=== PATIENT | female | born 1950 | race Caucasian/White ===

== ENCOUNTER → 2016-05-28 | Outpatient (CLI) | payer MEDICARE ==
[~2016-05-28] MED LIST: AMIT100 PO; ASPI1TAB7 PO; ISOS60 PO; LORA-475 PO; LOSA25TA31 PO; MULTTAB4 PO; PERP4 PO; SIMV10 PO; VERA120T3 PO; ZOFR4TAB3 PO
[2016-05-28 16:12] LABS: AUTOMATED NEUTROPHIL # 6.3 TH/MM3 (1.8-7.7); BASOPHIL % 0.5 % (0.0-2.0); EOSINOPHIL # 0.1 TH/MM3 (0-0.4); EOSINOPHIL % 1.6 % (0.0-4.0); HEMATOCRIT 40.2 % (35.0-46.0); HEMO FLAGS DIFF FINAL; LYMPH % 22.8 % (9.0-44.0); LYMPHOCYTE # 2.1 TH/MM3 (1.0-4.8); MEAN CELL VOLUME 84.9 FL (80.0-100.0); MEAN CORPUSCULAR HEMOGLOBIN 28.1 PG (27.0-34.0); MEAN CORPUSCULAR HGB CONC 33.1 % (32.0-36.0); MONO % 6.1 % (0.0-8.0); PLATELET COUNT 243 TH/MM3 (150-450); RED BLOOD COUNT 4.74 MIL/MM3 (4.00-5.30); RED CELL DISTRIBUTION WIDTH 13.8 % (11.6-17.2); WHITE BLOOD COUNT 9.2 TH/MM3 (4.0-11.0)
[2016-05-28 16:32] LABS: ALT (GPT) 24 U/L (10-53); ANION GAP 7 MEQ/L (5-15); AST (GOT) 19 U/L (15-37); BICARBONATE 26.8 MEQ/L (21.0-32.0); BLOOD UREA NITROGEN 10 MG/DL (7-18); CHLORIDE 107 MEQ/L (98-107); GLOMERULAR FILTRATION RATE 75 ML/MIN (>89); POTASSIUM 3.9 MEQ/L (3.5-5.1); SODIUM (NA) 141 MEQ/L (136-145)
[2016-05-28 16:33] LABS: ALKALINE PHOSPHATASE 104 U/L (45-117); TOTAL BILIRUBIN ADULT 0.6 MG/DL (0.2-1.0)
[2016-05-28 16:58] LABS: WESTERGREN SEDIMENTATION RATE 24 mm/hr (0-30)
== END ==
LOC: PLAB 14:44
PROVIDERS: ATTEND Family Medicine
DX: R53.1 Weakness (principal); N39.0 Urinary tract infection, site not specified; R10.9 Unspecified abdominal pain; R42 Dizziness and giddiness; I20.9 Angina pectoris, unspecified; M25.50 Pain in unspecified joint
CPT/HCPCS: 36415; 80053; 85025; 85652; 86141

== ENCOUNTER → 2017-07-15 | Outpatient (CLI) | payer MEDICARE ==
[2017-07-15 13:34] LABS: AUTOMATED NEUTROPHIL # 3.5 TH/MM3 (1.8-7.7); BASOPHIL % 0.5 % (0.0-2.0); EOSINOPHIL % 0.2 % (0.0-4.0); HEMATOCRIT 41.3 % (35.0-46.0); HEMOGLOBIN 13.7 GM/DL (11.6-15.3); LYMPH % 32.1 % (9.0-44.0); LYMPHOCYTE # 1.8 TH/MM3 (1.0-4.8); MEAN CELL VOLUME 87.2 FL (80.0-100.0); MEAN CORPUSCULAR HEMOGLOBIN 28.9 PG (27.0-34.0); MEAN CORPUSCULAR HGB CONC 33.2 % (32.0-36.0); MEAN PLATELET VOLUME 8.9 FL (7.0-11.0); MONO % 6.2 % (0.0-8.0); MONOCYTE # 0.4 TH/MM3 (0-0.9); PLATELET COUNT 232 TH/MM3 (150-450); RED BLOOD COUNT 4.73 MIL/MM3 (4.00-5.30); WHITE BLOOD COUNT 5.8 TH/MM3 (4.0-11.0)
[2017-07-15 14:04] LABS: ALBUMIN 3.6 GM/DL (3.4-5.0); AST (GOT) 24 U/L (15-37); BICARBONATE 29.2 MEQ/L (21.0-32.0); BLOOD UREA NITROGEN 13 MG/DL (7-18); CALCIUM 8.7 MG/DL (8.5-10.1); CHLORIDE 106 MEQ/L (98-107); CHOLESTEROL 156 MG/DL (120-200); CREATININE 0.76 MG/DL (0.50-1.00); GLOMERULAR FILTRATION RATE 75 ML/MIN (>89); GLUCOSE,FASTING 86 MG/DL (74-99); SODIUM (NA) 143 MEQ/L (136-145); TRIGLYCERIDES 95 MG/DL (42-150)
[2017-07-15 14:15] LABS: ALKALINE PHOSPHATASE 107 U/L (45-117); ALT (GPT) 26 U/L (10-53); CHOLESTEROL/ HDL RATIO 3.19 RATIO; HDL CHOLESTEROL 48.9 MG/DL (40.0-60.0); LDL CHOLESTEROL 88 MG/DL (0-99); TOTAL BILIRUBIN ADULT 0.7 MG/DL (0.2-1.0); TOTAL PROTEIN 7.7 GM/DL (6.4-8.2)
== END ==
LOC: PLAB 09:43
PROVIDERS: ATTEND Internal Medicine Gastroenterology
DX: K76.0 Fatty (change of) liver, not elsewhere classified (principal); E78.2 Mixed hyperlipidemia; R25.2 Cramp and spasm
CPT/HCPCS: 36415; 80053; 80061; 82248; 84443; 85025

== ENCOUNTER 2017-08-13 01:35 | Emergency (ER) | payer MEDICARE ==
[2017-08-13 01:40] VITALS: BP 153/70; PULSE 84; RESP 23; TEMP 97.4; O2SAT 96
[2017-08-13] MEDS ORDERED: ONDANSETRON ODT 4 MG TAB PO ONE (02:15)
--- NOTE | 2017-08-13 03:14 | PD ---
HPI Chief Complaint: Anxiety Time Seen by Provider: 02:00 Travel History International Travel<30 days: No Contact w/Intl Traveler<30days: No Traveled to known affect area: No History of Present Illness HPI 67-year-old female presents to the emergency department by private transportation the care of her spouse for evaluation of anxiety. Patient states that she underwent cataract surgery yesterday morning on Thursday. Patient states she had surgery on her left eye. Patient states she had had already had surgery on her right eye with good response to the intervention. Patient states yesterday after having surgery she noticed that she had some blurring of the vision of the left eye. Patient is scheduled to see her business banking sales assistant on morning at 7 AM. Due to her scheduled follow-up in the a.m. she decided not to notify the business banking sales assistant of the blurring of vision. Patient does not report any double vision or loss of vision. Patient states that she has had some flashes of light but she had that last time with her right eye. Patient denies any trauma or injury other than her. Patient has been very anxious and upset because she typically takes Ativan every night 2 mg to help with her sleep and her history of anxiety but because she received Valium with her procedure Thursday she was encouraged not to take her bedtime dose of Ativan. Patient states she reportedly went to bed around 11 PM was very anxious at the time she went to bed and was awakened from sleep around 1 AM screaming and concerned about her vision and her left eye. Patient was fearful that she might have complications and lose her left eye. Patient was calm down by her who thought perhaps she was having anxiety attack or bad dreams and patient took 1 mg of Ativan around 1:00 in the morning and then proceeded to come to the emergency room. Patient states she feels almost back to normal but still feels like she is having to work to use her right upper extremity. Patient denies other concerns or complaints. Patient is unable to identify exacerbating or alleviating factors. Patient states blurring of her vision has not changed since the procedure. Patient's had no purulent drainage. Patient has put eyedrops in the eyes as instructed but otherwise has not been addressing that I are looking to see if it was abnormal. PFSH Past Medical History Narrative Medical Asthma anxiety depression dyslipidemia CVA cataract surgery cholecystectomy no tobacco use; nursing notes reviewed Asthma: Yes Anxiety: Yes Depression: Yes Cardiomyopathy: Yes Cardiovascular Problems: Yes High Cholesterol: Yes Cerebrovascular Accident: Yes Diminished Hearing: No GERD: Yes Headaches: Yes Myocardial Infarction: Yes Pneumonia: Yes Tetanus Vaccination: Unknown ?: Not Tubal Ligation: Yes Past Surgical History Cholecystectomy: Yes Eye Surgery: Yes (catarac 08/12) Social History Alcohol Use: No Tobacco Use: No Substance Use: No Allergies-Medications (Allergen,Severity, Reaction): Coded Allergies: egg (Unverified Allergy, Unknown, 08/13/17) Reported Meds & Prescriptions Reported Meds & Active Scripts Active Zofran ODT (Ondansetron HCl) 4 Mg Tab 4 Mg PO Q6HR PRN Reported Multivitamins (Multiple Vitamin) Tab 1 Tab PO DAILY Ativan (Lorazepam) 2 Mg Tab 2 Mg PO HS Trilafon (Perphenazine) 4 Mg Tab 4 Mg PO HS Elavil 100 Mg Tab (Amitriptyline HCl) 100 Mg Tab 100 Mg PO HS Simvastatin 10 mg (Simvastatin) 10 Mg Tab 10 Mg PO HS Cozaar (Losartan Potassium) 25 Mg Tab 25 Mg PO DAILY Imdur 60 Mg (Isosorbide Mononitrate) 60 Mg Tabcr 60 Mg PO DAILY Verapamil Hcl (Verapamil HCl) 120 Mg Tab 120 Mg PO BID Aspirin 81 mg Tab (Aspirin) 81 Mg Tab 81 Mg PO DAILY Review of Systems Except as stated in HPI: all other systems reviewed are Neg General / Constitutional: No: Fever, Chills HENT: No: Congestion Cardiovascular: No: Chest Pain or Discomfort Respiratory: No: Shortness of Breath Gastrointestinal: No: Abdominal Pain Genitourinary: No: Flank Pain Musculoskeletal: No: Pain Skin: No Rash Neurologic: No: Change in Mentation Psychiatric: No: Anxiety, Depression Endocrine: No: Heat Intolerance, Cold Intolerance Hematologic/Lymphatic: No: Easy Bruising Physical Exam Narrative GENERAL: Well-developed well-nourished female no acute distress no respiratory distress SKIN: Warm and dry. HEAD: Normocephalic. EYES: No scleral icterus. No injection or drainage. A patch overlying left eye but patient can lift patch and see images with some blurring. No purulent drainage no redness no induration no gross hyphema. NECK: Supple, trachea midline. No JVD or lymphadenopathy. CARDIOVASCULAR: Regular rate and rhythm without murmurs, gallops, or rubs. RESPIRATORY: Breath sounds equal bilaterally. No accessory muscle use. GASTROINTESTINAL: Abdomen soft, non-tender, nondistended. MUSCULOSKELETAL: No cyanosis, or edema. BACK: Nontender without obvious deformity. No CVA tenderness. Data Data Last Documented VS Vital Signs Date Time Temp Pulse Resp B/P (MAP) Pulse Ox O2 Delivery O2 Flow Rate FiO2 08/13/17 01:40 97.4 84 23 153/70 (97) 96 Orders Orders Electrocardiogram (08/13/17 ) Ondansetron Odt (Zofran Odt) (08/13/17 02:15) Ed Discharge Order (08/13/17 03:27) [facility] Medical Decision Making Medical Screen Exam Complete: Yes Emergency Medical Condition: Yes Medical Record Reviewed: Yes Differential Diagnosis Anxiety/panic attack, arrhythmia, electrolyte disturbance, hypoxemia Narrative Course We will obtain EKG keep patient on monitor Patient reports that she feels much improved does not feel she needs an EKG at this time is desirous of being discharged to home has appointment with her transport specialist later this morning and feels that this is all related to her not being able to have her Lorazepam at bedtime; Diagnosis Primary Impression: Panic attack Additional Impression: H/O anxiety state Referrals: Environmental Services Specialist 1 day as scheduled Primary Care Physician call for appointment Patient Instructions: General Instructions Additional Instructions: Follow-up with your primary care provider Follow-up with your business banking sales assistant as planned Return to the emergency department for any concerns or change in condition Increase fluid hydration Disposition: 01 DISCHARGE HOME Condition: Stable Josephine Vital MD Aug 13, 2017 03:14
== END 2017-08-13 03:41 | disposition home or self-care (01) ==
LOC: NEPC 01:35
DX: F41.0 Panic disorder [episodic paroxysmal anxiety] (principal); F41.9 Anxiety disorder, unspecified; H53.8 Other visual disturbances; J45.909 Unspecified asthma, uncomplicated; I42.9 Cardiomyopathy, unspecified
CPT/HCPCS: 99283

== ENCOUNTER 2017-08-22 20:58 | Emergency (ER) | payer MEDICARE ==
[~2017-08-22] VITALS: Ht 154.9 cm; Wt 62.0 kg
[2017-08-22 21:03] VITALS: BP 132/72; PULSE 85; RESP 18; TEMP 98.6; O2SAT 97
--- NOTE | 2017-08-23 13:46 | EKG ---
Date Performed: 08/22/2017 Time Performed: 21:51:14 PTAGE: 67 years EKG: Sinus rhythm NONSPECIFIC ST & T-WAVE ABNORMALITY BORDERLINE ECG NO PREVIOUS TRACING DOCTOR: Hilario Kwong Interpretating Date/Time 08/23/2017 13:44:42
== END 2017-08-22 23:37 | disposition left against medical advice (07) ==
LOC: NEPC 20:58
DX: R42 Dizziness and giddiness (principal)
CPT/HCPCS: 93005; 99281